=== PATIENT | male | born 1995 | race Two or more races ===

== ENCOUNTER 2022-08-21 13:11 | Emergency (ER) | payer OTHER ==
[~2022-08-21] VITALS: Ht 182.9 cm; Wt 90.0 kg
[2022-08-21 13:16] VITALS: BP 121/78
[2022-08-21 13:38] LABS: Basophils # (auto) 0 10 ^3/uL (0-0.2); Basophils % (auto) 0.6 % (0.0-2.0); Eosinophils # (auto) 0 10 ^3/uL (0-0.8); Eosinophils % (auto) 0.3 % (0.0-7.0); Hematocrit 41.5 % (41.0-53.0); Hemoglobin 14.1 g/dL (13.5-17.5); Lymphocytes % (auto) 16.9 % (10.0-50.0); Mean Corpuscular Hemoglobin 31.9 pg (28.0-32.0); Mean Corpuscular Hgb Conc. 34.1 g/dL (32.0-36.0); Mean Corpuscular Volume 93.5 fL (80.0-100.0); Monocytes # (auto) 0.4 10 ^3/uL (0-1.3); Monocytes % (auto) 7.4 % (0.0-12.0); Neutrophils # (auto) 4.2 10 ^3/uL (1.6-8.6); Neutrophils % (auto) 74.8 % (37.0-80.0); Nucleated Red Blood Cells % 0.1 %; Red Blood Cells 4.43 10^6/uL (4.5-5.90); Red Cell Distribution Width 13.5 % (11.8-14.3); White Blood Cell 5.6 10^3/uL (4.4-10.8)
[2022-08-21] MEDS ORDERED: ASPirin 81 mg TAB PO ONE (13:45)
[2022-08-21] MEDS ORDERED: LORazepam 2MG/ML-1ML VIAL IM ONE (13:45)
[2022-08-21 13:53] LABS: Potassium 3.4 mmol/L (3.5-5.1)
[2022-08-21 13:56] LABS: INR 1.09 (0.9-1.15); Partial Thromboplastin Time 24.9 SEC (24.5-34.5)
[2022-08-21 14:09] LABS: Albumin 3.9 g/dL (3.4-5.0); BUN/Creatinine Ratio 4.9 (10.0-20.0); Bilirubin, Total 0.5 mg/dL (0.2-1.0); Calcium 8.5 mg/dL (8.5-10.1); Magnesium 2.4 mg/dL (1.6-2.6); Total Protein 6.5 g/dL (6.4-8.2)
[2022-08-21] MEDS ORDERED: CYCL-839 PO (16:04)
== END 2022-08-21 17:32 | disposition home or self-care (01) ==
LOC: ER 13:11
DX: E16.2 Hypoglycemia, unspecified (principal); R07.89 Other chest pain; F41.9 Anxiety disorder, unspecified; I10 Essential (primary) hypertension; R06.02 Shortness of breath
CPT/HCPCS: 36415; 71045; 80053; 83735; 83880; 84443; 84484; 85025; 85610; 85730; 93005; 96372; 99285; J2060

== ENCOUNTER 2024-01-05 01:25 | Emergency (ER) | payer OTHER ==
[~2024-01-05] VITALS: Ht 182.9 cm; Wt 86.4 kg
[~2024-01-05 01:25] MED LIST: CYCL-839 PO
--- NOTE | 2024-01-05 01:46 | ED.PDOC ---
HPI Comments A 28 year old male presents to the ED with a chief complaint of palpitations onset 1 day ago. Patient states he began experiencing palpations one day ago, improved but worsen again today around 01:00. He is also experiencing fever, chills, nausea, vomiting. Patient experienced similar symptoms about 3 months ago, resolved on its own. He has a past medical history of HTN and is non complaint with his medication. No other symptoms or modifying factors present at this time. Chief Complaint: Palpitations Time Seen by MD: 01:38 Primary Care Provider: MELANIA Reviewed Notes: Medications, Allergies Allergies: Coded Allergies: NO KNOWN ALLERGIES (Unverified , 08/21/22) Home Meds Active Scripts Cyclobenzaprine Hcl (Cyclobenzaprine Hcl) 10 Mg Tab, 10 MG PO TIDPRN PRN, #20 TAB Prov:CARLOS ALBERTO HONG MD 08/21/22 Information Source: Patient Mode of Arrival: Ambulatory Severity: Moderate Timing: Days Duration: Since onset Prehospital treatment: None Cardiac Risk Factors: Family History, HTN History of: Similar pain in past (3 months ago) Associated Signs and Symptoms: Palpitations, N/V Past Medical History PAST MEDICAL HISTORY: HTN Surgical History: Denies all surgeries Family History Family History: Reviewed,noncontributory to illness, Family hx of heart thomas, Family hx of HTN Social History Smoker: Other Alcohol: Denies ETOH Use Drugs: Denies Drug Use Lives In: Home Constitutional: reports: chills, fever; denies: diaphoresis, fatigue, malaise, sweats, weakness, others EENTM: denies: blurred vision, double vision, ear bleeding, ear discharge, ear drainage, ear pain, ear ringing, eye pain, eye redness, hearing loss, mouth pain, mouth swelling, nasal discharge, nose bleeding, nose congestion, nose pain, photophobia, tearing, throat pain, throat swelling, voice changes, others Respiratory: denies: cough, hemoptysis, orthopnea, SOB at rest, shortness of breath, SOB with excertion, stridor, wheezing, others Cardiovascular: reports: palpitations; denies: chest pain, dizzy spells, diaphoresis, Dyspnea on exertion, edema, irregular heart beat, left arm pain, lightheadedness, PND, syncope, others Gastrointestinal: reports: abdominal pain, nausea, vomiting; denies: abdomen distended, blood streaked bowels, constipated, diarrhea, dysphagia, difficulty swallowing, hematemesis, melena, poor appetite, poor fluid intake, rectal bleeding, rectal pain, others Genitourinary: denies: burning, dysuria, flank pain, frequency, hematuria, incontinence, penile discharge, penile sore, pain, testicle pain, testicle swelling, urgency, others Neurological: denies: dizziness, fainting, headache, left sided numbness, left sided weakness, numbness, paresthesia, pre-existing deficit, right sided numbness, right sided weakness, seizure, speech problems, tingling, tremors, weakness, others Musculoskeletal: denies: back pain, gout, joint pain, joint swelling, muscle pain, muscle stiffness, neck pain, others Integumetry: denies: bruises, change in color, change in hair/nails, dryness, laceration, lesions, lumps, rash, wounds, others Allergic/Immunocompromised: denies: Difficulty Healing, Frequent Infections, Hives, Itching, others Hematologic/Lymphatic: denies: anemia, blood clots, easy bleeding, easy bruising, swollen glands, others Endocrine: denies: excessive hunger, excessive sweating, excessive thirst, excessive urination, flushing, intolerance to cold, intolerance to heat, unexplained weight gain, unexplained weight loss, others Psychiatric: denies: anxiety, bipolar disorder, depression, hopeless, panic disorder, schizophrenia, sleepless, suicidal, others All Other Systems: Reviewed and Negative Physical Exam General Appearance: No Apparent Distress, Normal HEENT: Normal ENT Inspection, Pharynx Normal, TMs Normal Neck: Full Range of Motion, Non-Tender, Normal, Normal Inspection Respiratory: Chest Non-Tender, Lungs Clear, No Accessory Muscle Use, No Respiratory Distress, Normal Breath Sounds Cardiovascular: No Edema, No JVD, No Murmur, No Gallop, Normal Peripheral Pulses, Regular Rate/Rhythm Breast Exam: Deferred Gastrointestinal: No Organomegaly, Non Tender, No Pulsatile Mass, Normal Bowel Sounds, Soft Genitalia: Deferred Pelvic: Deferred Rectal: Deferred Extremities: No calf tenderness, Normal capillary refill, Normal inspection, Normal range of motion, Non-tender, No pedal edema Musculoskeletal : Apperance: Normal 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 Was a procedure done?: No CP Differential Dx Differential Diagnosis: PAC's, PVC's Differential Diagnosis: HTN Encephalopathy Differential Diagnosis: Myocardial Infarction X-Ray, Labs, Meds, VS Vital Signs Date Time Temp Pulse Resp B/P (MAP) Pulse Ox O2 Delivery O2 Flow Rate FiO2 01/05/24 03:00 Room Air* 0 21 01/05/24 02:05 101 18 100 Room Air* 0 21 01/05/24 02:05 98.8 101 18 127/89 (102) 100 98.8 01/05/24 01:36 98.5 107 16 144/83 (103) 100 Lab Test 01/05/24 02:37 01/05/24 02:30 01/05/24 01:40 Range/Units Influenza Type A Antigen Positive Negative Influenza Type B Antigen Positive Negative Troponin I High Sensitivity 6 7 </=54 ng/L White Blood Count 6.4 4.4-10.8 10^3/uL Red Blood Count 5.27 4.5-5.90 10^6/uL Hemoglobin 16.4 13.5-17.5 g/dL Hematocrit 48.2 41.0-53.0 % Mean Corpuscular Volume 91.4 80.0-100.0 fL Mean Corpuscular Hemoglobin 31.2 28.0-32.0 pg Mean Corpuscular Hemoglobin Concent 34.1 32.0-36.0 g/dL Red Cell Distribution Width 14.2 11.8-14.3 % Platelet Count 233 140-450 10^3/uL Mean Platelet Volume 8.6 6.9-10.8 fL Neutrophils (%) (Auto) 51.7 37.0-80.0 % Lymphocytes (%) (Auto) 37.9 10.0-50.0 % Monocytes (%) (Auto) 9.1 0.0-12.0 % Eosinophils (%) (Auto) 0.4 0.0-7.0 % Basophils (%) (Auto) 0.9 0.0-2.0 % Neutrophils # (Auto) 3.3 1.6-8.6 10 ^3/uL Lymphocytes # (Auto) 2.4 0.4-5.4 10 ^3/uL Monocytes # (Auto) 0.6 0-1.3 10 ^3/uL Eosinophils # (Auto) 0 0-0.8 10 ^3/uL Basophils # (Auto) 0.1 0-0.2 10 ^3/uL Nucleated Red Blood Cells 0.4 % Sodium Level 139 136-145 mmol/L Potassium Level 3.5 3.5-5.1 mmol/L Chloride Level 104 98-107 mmol/L Carbon Dioxide Level 26 20-31 mmol/L Anion Gap 9 5-15 Blood Urea Nitrogen 7 L 9-23 mg/dL Creatinine 1.39 H 0.700-1.30 mg/dL Glomerular Filtration Rate Calc 70 >90 mL/min BUN/Creatinine Ratio 5.0 L 10.0-20.0 Serum Glucose 102 74-106 mg/dL Calcium Level 10.1 8.7-10.4 mg/dL Current Medications Medications (Trade) Dose Ordered Sig/Aleshia Route Start Time Stop Time Status Last Admin Sodium Chloride 1,000 ml @ 1,000 mls/hr Q1H ONCE IV 01/05/24 01:45 01/05/24 02:44 DC 01/05/24 02:07 Time of 1ST Reevaluation: 02:08 Reevaluation 1ST: Unchanged Patient Education/Counseling: Diagnosis, Treatment, Prognosis Family Education/Counseling: No Family Present Departure 1 Departure Time of Disposition: 03:46 (Patient has a flu. Patient is hemodynamically stable. We will discharge patient home with outpatient follow up) Impression: Primary Impression: Influenza A Additional Impressions: Cough Qualified Codes: R05.1 - Acute cough Shortness of breath Disposition: 01 HOME / SELF CARE / HOMELESS Condition: Stable Additional Instructions: You have the flu. It is important to stay well rested and well hydrated. You can take Tylenol and Motrin as needed for pain and fever. For a sore throat you can drink warm tea with honey. You can take [id number] pseudoephedrine for nasal congestion. He should follow up with your regular doctor within 1 week to ensure you are doing better. If your symptoms worsen or you have any other concerns please return to the emergency room. Discharged With: Self Critical Care Note Critical Care Time?: No Stability Stability form required: No Heart Score Heart Score: Heart Score Response (Comments) Value History N/A 0 EKG N/A 0 Age N/A 0 Risk Factors N/A 0 Troponin N/A 0 Total 0 I personally scribed for MAXINE RICE MD ([email or web address]) on 01/05/24 at 01:46. Electronically submitted by Gloria Yusuf ([email or web address]). MAXINE RICE MD Jan 05, 2024 01:46
[2024-01-05 01:50] LABS: Basophils # (auto) 0.1 10 ^3/uL (0-0.2); Basophils % (auto) 0.9 % (0.0-2.0); Eosinophils # (auto) 0 10 ^3/uL (0-0.8); Eosinophils % (auto) 0.4 % (0.0-7.0); Hematocrit 48.2 % (41.0-53.0); Hemoglobin 16.4 g/dL (13.5-17.5); Lymphocytes # (auto) 2.4 10 ^3/uL (0.4-5.4); Lymphocytes % (auto) 37.9 % (10.0-50.0); Mean Corpuscular Hemoglobin 31.2 pg (28.0-32.0); Mean Corpuscular Hgb Conc. 34.1 g/dL (32.0-36.0); Mean Corpuscular Volume 91.4 fL (80.0-100.0); Monocytes # (auto) 0.6 10 ^3/uL (0-1.3); Monocytes % (auto) 9.1 % (0.0-12.0); Neutrophils # (auto) 3.3 10 ^3/uL (1.6-8.6); Neutrophils % (auto) 51.7 % (37.0-80.0); Nucleated Red Blood Cells % 0.4 %; Platelet Count (auto) 233 10^3/uL (140-450); Red Blood Cells 5.27 10^6/uL (4.5-5.90); Red Cell Distribution Width 14.2 % (11.8-14.3); White Blood Cell 6.4 10^3/uL (4.4-10.8)
[2024-01-05 02:02] LABS: Chloride 104 mmol/L (98-107); Potassium 3.5 mmol/L (3.5-5.1); Sodium 139 mmol/L (136-145)
[2024-01-05 02:03] LABS: Anion Gap 9 (5-15); Calcium 10.1 mg/dL (8.7-10.4); Carbon Dioxide 26 mmol/L (20-31)
[2024-01-05 02:05] VITALS: PULSE 101; RESP 18; O2SAT 100
[2024-01-05] MEDS: SODIUM CHLORIDE 0.9% 1,000 ML IV ONE (02:07)
[2024-01-05 02:08] LABS: Blood Urea Nitrogen 7 mg/dL (9-23); Glucose 102 mg/dL (74-106)
[2024-01-05 03:40] LABS: Rapid Influenza A Positive (Negative); Rapid Influenza B Positive (Negative)
[2024-01-05 03:56] VITALS: BP 131/82; PULSE 82; RESP 17; TEMP 98.8; O2SAT 98
--- NOTE | 2024-01-05 04:59 | DVH ---
CHEST RADIOGRAPH Indication:palpitations Technique: Frontal and lateral view of the chest was obtained Comparison: None FINDINGS: Lines and Tubes: None Lungs: Clear Pleura: No effusion. No pneumothorax. Cardiomediastinal contours: Unremarkable Bones: Unremarkable IMPRESSION: No evidence of acute disease.
--- NOTE | 2024-01-05 09:37 | ECG ---
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
== END 2024-01-05 03:56 | disposition home or self-care (01) ==
LOC: ER 01:25
DX: J10.1 Influenza due to other identified influenza virus with other respiratory manifestations (principal); R05.9 Cough, unspecified; R06.02 Shortness of breath; I10 Essential (primary) hypertension
CPT/HCPCS: 36415; 71046; 80048; 84484; 85025; 87804; 93005; 96360; 99285; J7030

== ENCOUNTER 2024-03-17 14:18 | Emergency (ER) | payer OTHER ==
[~2024-03-17] VITALS: Ht 182.9 cm; Wt 100.0 kg
[2024-03-17 14:21] VITALS: BP 136/83; RESP 20; O2SAT 94
[2024-03-17 14:22] VITALS: PULSE 102
--- NOTE | 2024-03-17 14:36 | ECG ---
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
== END 2024-03-17 15:44 | disposition left against medical advice (07) ==
LOC: ER 14:18
DX: J02.9 Acute pharyngitis, unspecified (principal); R51.9 Headache, unspecified; R05.9 Cough, unspecified; Z53.21 Procedure and treatment not carried out due to patient leaving prior to being seen by health care provider; Z79.899 Other long term (current) drug therapy
CPT/HCPCS: 36415; 84484; 93005